=== PATIENT | male | born 1995 | race Caucasian/White ===

== ENCOUNTER 2017-10-26 16:05 | Emergency (ER) | payer OTHER ==
[2017-10-26 16:25] VITALS: BP 122/71; PULSE 72; TEMP 98.5; BMI 17.2
[2017-10-26] MEDS ORDERED: LORATADINE 10 MG TABLET PO ONE (16:45)
[2017-10-26] MEDS ORDERED: ACETAMINOPHEN 500 MG TABLET (FP) PO ONE (16:45)
[2017-10-26] MEDS ORDERED: ACETAMINOPHEN 500 MG TABLET (FP) ONE (16:48)
[2017-10-26] MEDS ORDERED: LORATADINE 10 MG TABLET ONE (16:48)
--- NOTE | 2017-10-26 16:48 | PDOC ---
History of Present Illness - General Chief Complaint: Headache Stated Complaint: HEADACHE Time Seen by Provider: 10/26/17 16:27 History Source: Patient Exam Limitations: No Limitations - History of Present Illness Initial Comments: 10/26/17 16:46 21 year old male presents with feeling of pressure in his head since Saturday. Reports feeling a little lightheaded and sensitive to noise. States recently started omeprazole for inflammation of esophagus and stomach. Denies dizziness , blurred vision or nausea. States no medical or surgical history and took no medication so far. Timing/Duration: reports: 1 week Severity: Yes: mild Associated Symptoms: denies: confusion, loss of consciousness, numbness in legs/ feet, trouble walking, vision changes Past History - Past Medical History Allergies/Adverse Reactions: Allergies Allergy/AdvReac Type Severity Reaction Status Date / Time No Known Allergies Allergy Verified 10/26/17 16:21 Home Medications: Ambulatory Orders Loratadine [Claritin] 10 mg PO DAILY #10 tablet 10/26/17 Omeprazole 40 mg PO BID 10/26/17 CVA: No COPD: No DVT: No Diabetes: No GI Disorders: Yes (ESOPHOGITIS) - Immunization History Immunization Up to Date: Yes - Suicide/Smoking/Psychosocial Hx Smoking Status: No Smoking History: Never smoked Have you smoked in the past 12 months: No Number of Cigarettes Smoked Daily: 0 Information on smoking cessation initiated: No Hx Alcohol Use: No Drug/Substance Use Hx: No Substance Use Type: None Review of Systems - Review of Systems Able to Perform ROS?: Yes Is the patient limited Czech proficient: No Constitutional: No: Chills, Fever, Loss of Appetite, Malaise, Night Sweats HEENTM: Yes: Nose Congestion. No: Eye Pain, Tearing, Throat Pain, Throat Swelling Respiratory: No: Cough, Orthopnea, Shortness of Breath, Wheezing, Productive cough Cardiac (ROS): No: Chest Pain, Edema : No: Burning, Discharge Musculoskeletal: No: Joint Pain, Muscle Weakness Neurological: Yes: Headache. No: Numbness, Paresthesia Psychiatric: No: Stressors Endocrine: No: Intolerance to Heat Hematologic/Lymphatic: No: Anemia *Physical Exam - Vital Signs Last Vital Signs Temp Pulse Resp BP Pulse Ox 98.5 F 72 18 122/71 100 10/26/17 16:21 10/26/17 16:21 10/26/17 16:21 10/26/17 16:21 10/26/17 16:21 - Physical Exam General Appearance: Yes: Nourished, Appropriately Dressed. No: Apparent Distress HEENT: positive: MALCOLM, Nasal Congestion, Sinus Tenderness (mild tendernes with percussion mid forehead and left cheek bone). negative: Pharynx Normal, Rhinorrhea Neck: positive: Supple. negative: Tender, Lymphadenopathy (R), Lymphadenopathy (L) Respiratory/Chest: positive: Lungs Clear. 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, Fully Oriented, Alert Medical Decision Making - Medical Decision Making 10/26/17 16:50 21 year male with pressure in face since Saturday A/p allergic Rhinnitis -given acetaminophen and claritin -Rx: claritin 10/26/17 17:44 reasses feels a little better d/c rx: claritin follow up with pmd *DC/Admit/Observation/Transfer Diagnosis at time of Disposition: Congestion of nasal sinus - Discharge Dispostion Disposition: HOME Condition at time of disposition: Good Admit: No - Prescriptions Prescriptions: Loratadine [Claritin] 10 mg PO DAILY #10 tablet - Referrals Referrals: Prasad Ayoub [Primary Care Provider] - - Patient Instructions Printed Discharge Instructions: Sinus Headache, DI for Sinus Headache Additional Instructions: Please call primary physician for follow up appointment - Post Discharge Activity Forms/Work/School Notes: Back to Work
== END 2017-10-26 18:14 | disposition home or self-care (01) ==
LOC: JERFT 16:05
DX: J34.89 Other specified disorders of nose and nasal sinuses (principal)
CPT/HCPCS: 99281-25

== ENCOUNTER 2018-07-25 18:59 | Emergency (ER) | payer OTHER ==
[2018-07-25] MEDS ORDERED: ACETAMINOPHEN 500 MG TABLET (FP) PO ONE (19:05)
[2018-07-25 19:07] VITALS: BP 118/85; PULSE 81; TEMP 98.3; BMI 17.2
--- NOTE | 2018-07-25 19:08 | PDOC ---
Rapid Medical Evaluation Time Seen by Provider: 07/25/18 19:02 Medical Evaluation: Allergies Allergy/AdvReac Type Severity Reaction Status Date / Time No Known Allergies Allergy Verified 07/25/18 19:04 Vital Signs Temp Pulse Resp BP Pulse Ox 98.3 F 81 18 118/85 99 07/25/18 19:04 07/25/18 19:04 07/25/18 19:04 07/25/18 19:04 07/25/18 19:04 07/25/18 19:07 Pt c/o: rib and narinder chest aching worse with movement and deep breathing, no meds taken Pt on brief exam: no reproducible pain Patient ordered for: ekg, tylenol Pt to proceed to the ED Discharge Disposition - Diagnosis Chest pain - Referrals - Patient Instructions - Post Discharge Activity
[2018-07-25] MEDS ORDERED: ACETAMINOPHEN 325 MG TABLET (FP) ONE (20:00)
--- NOTE | 2018-07-25 20:00 | PDOC ---
Attending Attestation - HPI HPI: 07/25/18 21:38 The patient is a 22-year-old male with a past medical history significant for reflux esophagitis (dx 1 year ago by endoscopy, tx with antacids, re-check endoscopy in March found to have improved presents to the emergency department with chest pain and abdominal pain. The patient presents with several days of diffused chest pain and upper abdominal pain that radiates to the side, that worsened today when he was lifting a heavy object. The patient reports the pain varies in severity, states the pain is at the worse at the end of the day. The patient reports similar pain in the past that would self resolve. The patient reports following up with PCP for the chest pain in the past, where he had u/s and EKG done that were unremarkable. Allergies: NKDA - Physicial Exam PE: 07/25/18 21:38 GENERAL: Awake, alert, and fully oriented, in no acute distress HEAD: No signs of trauma EYES: PERRLA, EOMI, sclera anicteric, conjunctiva clear ENT: Auricles normal inspection, hearing grossly normal, nares patent, oropharynx clear without exudates. Moist mucosa NECK: Normal ROM, supple, no lymphadenopathy, JVD, or masses LUNGS: Breath sounds equal, clear to auscultation bilaterally. No wheezes, and no crackles HEART: Patients BP equal bilaterally, regular rate and rhythm. normal S1 and S2 , no murmurs, rubs or gallops ABDOMEN: +no abdominal tenderness, no rebound or guarding. No flank pain. Soft, nontender, No masses EXTREMITIES: Normal range of motion, no edema. No clubbing or cyanosis. No cords, erythema, or tenderness NEUROLOGICAL: Cranial nerves II through XII grossly intact. Normal speech, normal gait SKIN: Warm, Dry, normal turgor, no rashes or lesions noted. - Medical Decision Making 07/25/18 21:03 Documentation prepared by Rhianna Dukes, acting as medical attendant for Deepthi Tracy MD. <Rhianna Dukes - Last Filed: 07/25/18 21:38> - Resident Resident Name: Moira Rojas - ED Attending Attestation I have performed the following: I have examined & evaluated the patient, The case was reviewed & discussed with the resident, I agree w/resident's findings & plan - Medical Decision Making 07/25/18 21:00 Pt has no abd pain with palpation or with rebound. No guarding. He is afebrile. He has no flank pain. Pt appears well on exam. 07/25/18 21:51 Labs are normal; cxr normal 07/25/18 22:01 EKG normal. Vitals normal. Repeat exams normal. Pt will be asked to eat and drink regular meals and to count calories, so that he gets the required 2000cal/day. He will be given zantac 300 qhs and he will be d/c back to his regular docs. <Deepthi Tracy - Last Filed: 07/25/18 22:02>
[2018-07-25] MEDS ORDERED: MAG HYDROX/AL HYDROX/SIMETH 30 ML UNIT-DOSE CUP PO ONE (20:40)
[2018-07-25] MEDS ORDERED: RANITIDINE HCL 150 MG TABLET (FP) PO ONE (20:50)
--- NOTE | 2018-07-25 20:51 | PDOC ---
History of Present Illness - General Chief Complaint: Chest Pain Stated Complaint: CHEST PAIN Time Seen by Provider: 07/25/18 19:02 History Source: Patient Exam Limitations: No Limitations - History of Present Illness Initial Comments: 07/25/18 20:42 22YOM with PMH of reflux esophagitis as diagnosed about one year ago by endoscopy, tx with antacids, then re-checked with repeat endoscopy and found to have improved. He presents with diffuse anterior chest and upper abdominal pain for the past several days, stabbing in nfluctuating and worsening with lifting today. He has had this pain before in the past but notes that it has never lasted for this many days. Also has intermittent palpitations which he associates with increased stress that he does not know where this pain is coming from, and also with standing up from sitting position. Has not tried taking medications for the pain. He denies any associated f/c/n/v/d/c, black/ bloody stool, SOB, dysuria, testicular pain/swelling, rash, burning sensation in his throat, or strange taste in his mouth. Past History - Past Medical History Allergies/Adverse Reactions: Allergies Allergy/AdvReac Type Severity Reaction Status Date / Time No Known Allergies Allergy Verified 07/25/18 19:04 Home Medications: Ambulatory Orders Loratadine [Claritin] 10 mg PO DAILY #10 tablet 10/26/17 Omeprazole 40 mg PO BID 10/26/17 Ranitidine HCl [Zantac] 300 mg PO DAILY #30 tablet 07/25/18 CVA: No COPD: No DVT: No Diabetes: No GI Disorders: Yes (ESOPHOGITIS) - Immunization History Immunization Up to Date: Yes - Suicide/Smoking/Psychosocial Hx Smoking Status: No Smoking History: Never smoked Have you smoked in the past 12 months: No Number of Cigarettes Smoked Daily: 0 Hx Alcohol Use: No Drug/Substance Use Hx: No Substance Use Type: None Review of Systems - Review of Systems Able to Perform ROS?: Yes Comments:: 07/25/18 21:00 GEN: no fever, chills, malaise, generalized weakness, or weight change HEENT: no ear pain, sore throat, vision change, or eye pain CV: chest pain, palpitations, no lightheadedness, syncope, or edema RESP: no cough, wheezing, or SOB GI: abdominal pain, no nausea, vomiting, diarrhea, constipation, or white/black/ bloody stool : no dysuria, hematuria, incontinence, retention, bleeding, or discharge MSK: no neck/back pain, muscle weakness/pain, or joint swelling/pain NEURO: no headache, seizure, vertigo, numbness, tingling, or focal weakness PSYCH: no substance use, no behavior change SKIN: no jaundice, no rash ROS otherwise negative except as noted in HPI *Physical Exam - Vital Signs Last Vital Signs Temp Pulse Resp BP Pulse Ox 98.3 F 81 18 118/85 99 07/25/18 19:04 07/25/18 19:04 07/25/18 19:04 07/25/18 19:04 07/25/18 19:04 - Physical Exam Comments: 07/25/18 21:02 GENERAL: very thin and tall young adult male, very anxious appearing, nontoxic- appearing, A/Ox4, answers questions appropriately, flat affect, accompanied by mother HEENT: PERRLA, EOMI, moist mucous membranes NECK/BACK: no midline ttp, no spinal stepoff or deformity, no hematoma, full ROM , neck supple CARDIOVASCULAR: regular rate/rhythm, normal S1S2, no MGR, strong peripheral pulses, capillary refill <2 seconds, extremities wwp, no edema CHEST WALL: normal appearance, no rash, no bruising, no costal stepoff or deformity, nontender to compression LUNGS/RESPIRATORY: no respiratory distress, CTAB GI/ABDOMEN: symmetric [id number], normoactive BS, soft, mild epigastric ttp without any additional ttp, no midline pulsatile masses : no CVA tenderness EXTREMITIES: no muscle atrophy, no acute deformity SKIN: warm and dry, no pallor, no jaundice, no rash, no bruising, no skin breakdown, no cuts, no lesions NEUROLOGICAL: GCS 15, CN II-XII grossly intact, 5/5 strength proximally and distally, no facial droop Heart Score/ECG Review - History History: Slightly suspicious - Electrocardiogram EKG: Normal - Age Age: </= 45 - Risk Factors Based on the list above the patient has:: No risk factors known - Troponin Troponin: </= normal limit - Score Heart Score - Total: 0 #1 07/25/18 21:58 NSR, rate 88, normal axis and intervals, no ischemic changes. Moderate Sedation - Procedure Monitoring Vital Signs: Procedure Monitoring Vital Signs Temperature 98.3 F 07/25/18 19:04 Pulse Rate 81 07/25/18 19:04 Respiratory Rate 18 07/25/18 19:04 Blood Pressure 118/85 07/25/18 19:04 O2 Sat by Pulse Oximetry (%) 99 07/25/18 19:04 ED Treatment Course - LABORATORY CBC & Chemistry Diagram: 07/25/18 20:50 07/25/18 20:50 - ADDITIONAL ORDERS Additional order review: Laboratory Results 07/25/18 20:50 Sodium 142 Potassium 4.8 Chloride 107 Carbon Dioxide 28 Anion Gap 7 L BUN 12 Creatinine 0.8 Creat Clearance w eGFR > 60 Random Glucose 92 Calcium 9.5 Total Bilirubin 0.6 AST 9 L ALT 23 Alkaline Phosphatase 74 Creatine Kinase 74 Troponin I < 0.02 Total Protein 8.1 Albumin 4.7 Lipase 133 07/25/18 20:50 RBC 5.24 MCV 82.1 MCHC 36.9 H RDW 13.6 MPV 8.6 Neutrophils % 67.4 Lymphocytes % 26.3 Monocytes % 4.4 Eosinophils % 1.4 Basophils % 0.5 - Medications Given in the ED: ED Medications Discontinued Medications Generic Name Dose Route Start Last Admin Trade Name Freq PRN Reason Stop Dose Admin Acetaminophen 975 mg 07/25/18 19:05 07/25/18 19:30 Tylenol - PO 07/25/18 19:06 975 mg ONCE ONE Administration Al Hydroxide/Mg Hydroxide 30 ml 07/25/18 20:40 07/25/18 21:05 Mylanta Oral Suspension - PO 07/25/18 20:41 30 ml ONCE ONE Administration Ranitidine HCl 300 mg 07/25/18 20:50 07/25/18 21:05 Zantac - PO 07/25/18 20:51 300 mg ONCE ONE Administration Medical Decision Making - Medical Decision Making 07/25/18 20:57 Adult Pt p/w chest pain. Initial Vital Signs Temp Pulse Resp BP Pulse Ox 98.3 F 81 18 118/85 99 07/25/18 19:04 07/25/18 19:04 07/25/18 19:04 07/25/18 19:04 07/25/18 19:04 Exam: As noted in Physical Exam section. DDX IBNLT: Most likely gastritis, PUD, musculoskeletal, or panic/anxiety. Less likely although will still consider ACS, PTX (patient is tall and thin), pericarditis, tamponade, aortic dissection (patient is tall and thin and has arachnodactyly), AAA, PE, esophageal tear, esophagitis (e.g. reflux, pill, infectious), esophageal stricture, esophageal FB, pancreatitis, cholecystitis, cholangitis, colitis, PNA/bronchitis, pleurisy, pleuritis, MVP, etc. W/U ordered: Labs as noted below, EKG CXR. TX ordered: Tylenol given up front, also Maalox and Ranitidine here. EKG: Reviewed; results as noted in ECG Review section. CXR: Nothing acute. Laboratory Tests 07/25/18 07/25/18 20:50 20:50 WBC 10.9 H RBC 5.24 Hgb 15.9 Hct 43.0 MCV 82.1 MCH 30.3 MCHC 36.9 H RDW 13.6 Plt Count 296 D MPV 8.6 Absolute Neuts (auto) 7.3 Neutrophils % 67.4 Lymphocytes % 26.3 Monocytes % 4.4 Eosinophils % 1.4 Basophils % 0.5 Nucleated RBC % 0 Sodium 142 Potassium 4.8 Chloride 107 Carbon Dioxide 28 Anion Gap 7 L BUN 12 Creatinine 0.8 Creat Clearance w eGFR > 60 Random Glucose 92 Calcium 9.5 Total Bilirubin 0.6 AST 9 L ALT 23 Alkaline Phosphatase 74 Creatine Kinase 74 Troponin I < 0.02 Total Protein 8.1 Albumin 4.7 Lipase 133 Reassessment: Patient appears comfortable, repeat exam benign. 07/25/18 22:21 Workup not concerning for any emergency or life-threatening pathology/ arrhythmia. The Pts HEART score indicates they are low risk and do not require admission currently. No systolic murmur of or HOCM is heard. On EKG no e/o WPW, Brugada, epsilon wave, right heart strain, long QT, or other concern. The Pt is appropriate for discharge with close outpatient follow up. They are comfortable with this plan and will follow up with their primary care provider in 1-3 days. E-Rx is sent for Ranitidine trial to take 300 mg QHS at home. Specific return precautions are discussed and they will come back to the ER if necessary. *DC/Admit/Observation/Transfer Diagnosis at time of Disposition: Chest pain Qualifiers: Chest pain type: unspecified Qualified Code(s): R07.9 - Chest pain, unspecified - Discharge Dispostion Disposition: HOME Condition at time of disposition: Stable Decision to Admit order: No - Prescriptions Prescriptions: Ranitidine HCl [Zantac] 300 mg PO DAILY #30 tablet - Referrals Referrals: ON STAFF,NOT [Primary Care Provider] - - Patient Instructions Printed Discharge Instructions: DI for Chest Pain Additional Instructions: You were seen in the ER for chest (rib) pain and upper abdominal pain. We did lab work on your blood and found no abnormalities. We took an electrocardiogram which showed no concerning findings on your heart activity. We did a chest x- ray which was also normal. After our assessment, we do not believe you are having a medical emergency at this time, and we believe you are safe to go home. 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 You can take Tylenol or Motrin if you need it for additional pain. Please also follow up with your primary care provider in 1-3 days. Please come back to the ER at any time, 24 hours a day, for any new or worsening symptoms, like worsened abdominal pain, fever, inability to have a bowel movement or pass gas, new or worsening chest pain, palpitations, or other symptoms. If you are having severe or life threatening symptoms, or symptoms that make it unsafe to drive or have someone drive you, please call 911. - Post Discharge Activity
[2018-07-25] MEDS ORDERED: RANITIDINE HCL 150 MG TABLET (FP) ONE (20:57)
[2018-07-25] MEDS ORDERED: MAG HYDROX/AL HYDROX/SIMETH 30 ML UNIT-DOSE CUP ONE (20:58)
[2018-07-25 21:14] LABS: BASO % 0.5 % (0-2.0); EOS % 1.4 % (0-4.5); HEMOGLOBIN 15.9 GM/dL (11.7-16.9); LYMPH % 26.3 % (8-40); MCH 30.3 pg (25.7-33.7); MCHC 36.9 g/dl (32.0-35.9); MEAN CELL VOLUME 82.1 fl (80-96); MEAN PLT VOLUME 8.6 fl (7.5-11.1); MONO % 4.4 % (3.8-10.2); NEUT % 67.4 % (42.8-82.8); PLATELET COUNT 296 K/MM3 (134-434); RBC 5.24 M/mm3 (4.00-5.60); RDW 13.6 % (11.9-15.9); WHITE BLOOD COUNT 10.9 K/mm3 (4.0-10.0)
[2018-07-25 21:49] LABS: ALBUMIN 4.7 g/dl (3.4-5.0); ALK PHOS 74 U/L (45-117); ANION GAP 7 MMOL/L (8-16); BILIRUBIN,TOTAL 0.6 mg/dL (0.2-1); BLOOD UREA NITROGEN 12 mg/dL (7-18); CALCIUM 9.5 mg/dL (8.5-10.1); CHLORIDE 107 mmol/L (98-107); CO2 28 mmol/L (21-32); CREATININE 0.8 mg/dL (0.55-1.3); GLUCOSE,RANDOM 92 mg/dL (74-106); LIPASE 133 U/L (73-393); POTASSIUM 4.8 mmol/L (3.5-5.1); SGOT/AST 9 U/L (15-37); SGPT/ALT 23 U/L (13-61); SODIUM 142 mmol/L (136-145); TOT PROT 8.1 g/dl (6.4-8.2)
--- NOTE | 2018-07-26 13:08 | EKG ---
Test Reason : Blood Pressure : / mmHG Vent. Rate : 088 BPM Atrial Rate : 088 BPM P-R Int : 142 ms QRS Dur : 084 ms QT Int : 352 ms P-R-T Axes : 081 081 066 degrees QTc Int : 425 ms NORMAL SINUS RHYTHM NORMAL ECG NO PREVIOUS ECGS AVAILABLE Confirmed by DEVIN VALDEZ MD ([id number]) on 07/26/2018 1:08:34 PM Referred By: Confirmed By:DEVIN VALDEZ MD
== END 2018-07-25 22:11 | disposition home or self-care (01) ==
LOC: JER 18:59
DX: R07.9 Chest pain, unspecified (principal); K21.0 Gastro-esophageal reflux disease with esophagitis
CPT/HCPCS: 36415; 71046-TC-FY; 80053; 82550; 83690; 84484; 85025; 93005; 93010; 99281-25